=== PATIENT | female | born 1960 | race Caucasian/White ===

== ENCOUNTER 2019-03-10 09:44 | Emergency (ER) | payer OTHER ==
[~2019-03-10] VITALS: Ht 160 cm; Wt 63.5 kg
[~2019-03-10 09:44] MED LIST: ALPR1TAB2 PO; HYDR-3606 PO
--- NOTE | 2019-03-10 09:54 | NUR ---
Patient to ER bed 3 to gown for evaluation. Side rails up. Report given to Faizan PANCHAL.
[2019-03-10 09:55] VITALS: BP_SYST 117
--- NOTE | 2019-03-10 09:55 | NUR ---
Patient is awake, alert, and oriented x4. Patient is complaining of burning chest pain 8/10 since yesterday. Patient denies shortness of breath.
--- NOTE | 2019-03-10 09:58 | NUR ---
HAVEN Ely at bedside examining patient.
[2019-03-10] MEDS ORDERED: ALPRAZolam 0.25 MG TABLET PO ONE (10:00)
--- NOTE | 2019-03-10 10:09 | NUR ---
Patient up to bathroom to provide urine sample.
[2019-03-10 10:14] LABS: BASOPHILS # (AUTO) 0.1 K/uL (0.0-0.2); BASOPHILS % (AUTO) 0.9 % (0.0-2.0); EOSINOPHILS # (AUTO) 0.1 K/uL (0.0-0.4); HEMATOCRIT 43.4 % (36-48); HEMOGLOBIN 14.7 g/dL (12.0-16.0); LYMPHOCYTES # (AUTO) 1.9 K/uL (1.0-5.5); LYMPHOCYTES % (AUTO) 21.8 % (20.5-51.5); MEAN CORPUSCULAR HEMOGLOBIN 31 pg (27-31); MEAN CORPUSCULAR HGB CONC 34 % (32-36); MEAN CORPUSCULAR VOLUME 90 fL (79.0-98.0); MONOCYTES # (AUTO) 0.4 K/uL (0.0-1.0); MONOCYTES % (AUTO) 4.5 % (1.7-9.3); NEUTROPHILS # (AUTO) 6.3 K/uL (1.8-7.7); NEUTROPHILS % (AUTO) 71.8 % (40.0-70.0); PLATELET COUNT (AUTO) 263 K/uL (130-430); RED BLOOD CELL COUNT(AUTO) 4.81 MIL/uL (4.2-6.2); RED CELL DISTRIBUTION WIDTH 13.3 % (9.0-15.0); WHITE BLOOD COUNT (AUTO) 8.9 K/uL (4.8-10.8)
[2019-03-10 10:32] LABS: ALANINE AMINOTRANSFERASE 27 U/L (12-78); ALBUMIN 3.3 g/dL (3.4-4.8); ASPARTATE AMINOTRANSFERASE 18 U/L (10-37); CALCIUM 9.1 mg/dL (8.4-11.0); CHLORIDE 105 mmol/L (98-107); CREATININE 1.01 mg/dL (0.55-1.30); GLUCOSE 131 mg/dL (70-99); POTASSIUM 4.1 mmol/L (3.5-5.1); SODIUM SERUM 141 mmol/L (136-145); TOTAL BILIRUBIN 0.6 mg/dL (0.0-1.0); UREA NITROGEN, BLOOD 7 mg/dL (8-21)
[2019-03-10 10:38] LABS: ANION GAP 9 (5-15)
[2019-03-10 10:39] LABS: GFR AFRICAN AMERICAN 72 mL/min (>90)
[2019-03-10 10:41] LABS: BILIRUBIN,URINE NEGATIVE (NEGATIVE); BLOOD, URINE NEGATIVE (NEGATIVE); CLARITY/URINE CLEAR (CLEAR); COLOR,URINE YELLOW (YELLOW); GLUCOSE,URINE NEGATIVE (NEGATIVE); KETONES,URINE NEGATIVE (NEGATIVE); LEUKOCYTE ESTERASE ,URINE NEGATIVE (NEGATIVE); NITRITE, URINE NEGATIVE (NEGATIVE); PH,URINE 6.5 (5.0-8.0); PROTEIN URINE NEGATIVE (NEGATIVE); UROBILINOGEN,URINE 0.2 (0.2-1.0)
[2019-03-10] MEDS ORDERED: IBUPROFEN 600 MG TABLET PO ONE (11:00)
--- NOTE | 2019-03-10 11:07 | NUR ---
Patient refused ibuprofen, Dr. Ely made aware.
--- NOTE | 2019-03-10 11:11 | NUR ---
Patient given written and verbal discharge instructions and verbalizes understanding. ER MD discussed with patient the results and treatment provided. Patient in stable condition. ID arm band removed. Patient educated on pain management and to follow up with PMD. Pain Scale 5/10, Dr. Ely is aware. Opportunity for questions provided and answered. Medication side effect fact sheet provided.
[2019-03-10 11:12] VITALS: BP_SYST 104
== END 2019-03-10 11:11 | disposition home or self-care (01) ==
LOC: SED 09:44
DX: R07.89 Other chest pain (principal); F41.9 Anxiety disorder, unspecified; F17.210 Nicotine dependence, cigarettes, uncomplicated; J45.909 Unspecified asthma, uncomplicated; Z88.0 Allergy status to penicillin; Z88.6 Allergy status to analgesic agent; Z88.8 Allergy status to other drugs, medicaments and biological substances; Z79.899 Other long term (current) drug therapy; Z71.6 Tobacco abuse counseling
CPT/HCPCS: 36415; 71045; 80053; 81003; 83880; 84484; 85025; 85379; 93005; 99284

== ENCOUNTER 2019-10-29 19:26 | Emergency (ER) | payer OTHER ==
[~2019-10-29] VITALS: Ht 160 cm; Wt 65.8 kg
[~2019-10-29 19:26] MED LIST changes: -HYDR-3606 PO; +HYDR-3607 PO
[2019-10-29 19:45] VITALS: BP_SYST 122
--- NOTE | 2019-10-29 19:55 | NUR ---
Patient triaged and placed in waiting room. VSS and patient appears in no acute distress at this time. Accompanied by self, awaiting available bed, and MD notified of need for MSE.
--- NOTE | 2019-10-29 21:38 | NUR ---
Patient to ER bed 03 to gown for evaluation. Side rails up.
--- NOTE | 2019-10-29 21:45 | NUR ---
Note undone in EDM - 10/29/19 at 2151 by [email or web address] Patient AAO x 4 ambulates to ER bed 03 with complaints of 6/10 chest pressure x 2 days. Reports cough, congestion with green phlegm, and diarrhea since last Saturday. Denies cardiorespiratory medical history. Patient has history of anxiety, and she is prescribed Xanax. Even chest rise and fall with respirations. Will continue to monitor.
--- NOTE | 2019-10-29 21:50 | NUR ---
ER Dr. Becerra at bedside examining patient.
[2019-10-29] MEDS ORDERED: NACL 0.9% 1,000 ML IV ONE (21:52)
[2019-10-29] MEDS ORDERED: LevALBUTEROL HCL 1.25 MG/0.5 ML *CONC.* VIAL.NEB (XOPENEX CONC.) INH ONE (22:00)
[2019-10-29 22:20] LABS: BASOPHILS % (AUTO) 0.4 % (0.0-2.0); EOSINOPHILS # (AUTO) 0.1 K/uL (0.0-0.4); EOSINOPHILS % (AUTO) 0.7 % (0.0-4.0); HEMATOCRIT 38.3 % (36-48); HEMOGLOBIN 13.1 g/dL (12.0-16.0); LYMPHOCYTES # (AUTO) 3.1 K/uL (1.0-5.5); LYMPHOCYTES % (AUTO) 29.6 % (20.5-51.5); MEAN CORPUSCULAR HEMOGLOBIN 31 pg (27-31); MEAN CORPUSCULAR HGB CONC 34 % (32-36); MEAN CORPUSCULAR VOLUME 90 fL (79.0-98.0); MONOCYTES # (AUTO) 0.6 K/uL (0.0-1.0); MONOCYTES % (AUTO) 5.6 % (1.7-9.3); NEUTROPHILS # (AUTO) 6.6 K/uL (1.8-7.7); NEUTROPHILS % (AUTO) 63.7 % (40.0-70.0); PLATELET COUNT (AUTO) 307 K/uL (130-430); RED BLOOD CELL COUNT(AUTO) 4.25 MIL/uL (4.2-6.2); RED CELL DISTRIBUTION WIDTH 12.9 % (9.0-15.0); WHITE BLOOD COUNT (AUTO) 10.4 K/uL (4.8-10.8)
[2019-10-29 22:32] LABS: CREATININE 0.78 mg/dL (0.55-1.30); POTASSIUM 3.4 mmol/L (3.5-5.1)
[2019-10-29 22:37] LABS: ALBUMIN 3.3 g/dL (3.4-4.8); TOTAL BILIRUBIN 0.2 mg/dL (0.0-1.0)
--- NOTE | 2019-10-29 22:41 | NUR ---
RT at bedside for blood draw.
[2019-10-30] MEDS ORDERED: PROMETHAZINE-DM 6.25 MG-15 MG/5 ML UDC PO ONE (00:45)
[2019-10-30] MEDS ORDERED: CEPHALEXIN 500 MG CAPSULE PO ONE (00:45)
[2019-10-30 01:10] VITALS: BP_SYST 115
[2019-10-30] MEDS ORDERED: PROMETHAZINE-DM 6.25 MG-15 MG/5 ML UDC ONE (01:10)
--- NOTE | 2019-10-30 01:10 | NUR ---
Patient given written and verbal discharge instructions and verbalizes understanding. ER MD Dr. Becerra discussed with patient the results and treatment provided. Patient in stable condition. ID arm band removed. IV catheter removed intact and dressing applied, no active bleeding. Rx of Keflex and Promethazine given. Patient educated on medication use and to follow up with PMD. Pain Scale 3/10. Opportunity for questions provided and answered. Medication side effect fact sheet provided.
== END 2019-10-30 01:10 | disposition home or self-care (01) ==
LOC: SED 19:26
DX: J45.909 Unspecified asthma, uncomplicated (principal); F41.9 Anxiety disorder, unspecified; F17.200 Nicotine dependence, unspecified, uncomplicated; R50.9 Fever, unspecified; R53.1 Weakness; Z88.0 Allergy status to penicillin; Z88.6 Allergy status to analgesic agent
CPT/HCPCS: 36415; 71045; 80053; 83605; 83690; 84484; 85025; 86710; 87040; 94640; 96360; 99284; J7030; J7612

== ENCOUNTER 2021-06-09 13:55 | Emergency (ER) | payer OTHER, SELFPAY ==
--- NOTE | 2021-06-09 14:30 | NUR ---
UNABLE TO FIND THE PATIENT
== END 2021-06-09 14:30 | disposition left against medical advice (07) ==
LOC: SED 13:55
DX: J11.1 Influenza due to unidentified influenza virus with other respiratory manifestations (principal); Z53.21 Procedure and treatment not carried out due to patient leaving prior to being seen by health care provider

== ENCOUNTER 2023-08-14 16:09 | Emergency (ER) | payer OTHER ==
[~2023-08-14] VITALS: Ht 160 cm; Wt 66.7 kg
[2023-08-14 16:15] VITALS: BP_SYST 150; PULSE 91; RESP 19; TEMP 97.8; O2SAT 98
== END 2023-08-14 16:44 | disposition left against medical advice (07) ==
LOC: SED 16:09
DX: Z00.00 Encounter for general adult medical examination without abnormal findings (principal); F43.21 Adjustment disorder with depressed mood; R45.7 State of emotional shock and stress, unspecified; J45.909 Unspecified asthma, uncomplicated; Z88.0 Allergy status to penicillin; Z88.5 Allergy status to narcotic agent; Z88.6 Allergy status to analgesic agent; Z79.899 Other long term (current) drug therapy
CPT/HCPCS: 99281

== ENCOUNTER 2023-10-10 13:35 | Emergency (ER) | payer OTHER ==
[~2023-10-10] VITALS: Ht 162.6 cm; Wt 59.0 kg
[2023-10-10 13:35] VITALS: BP_SYST 181; PULSE 89; RESP 18; TEMP 97; O2SAT 100
[2023-10-10] MEDS ORDERED: traMADol HCL HCL 50 MG TABLET (ULTRAM) PO ONE (14:45)
[2023-10-10] MEDS ORDERED: HYDROcodone/ACETAMIN 10-325 MG TAB PO ONE (15:15)
[2023-10-10] MEDS ORDERED: HYDR-3917 PO (15:57)
== END 2023-10-10 16:28 | disposition home or self-care (01) ==
LOC: SED 13:35
DX: S92.324A Nondisplaced fracture of second metatarsal bone, right foot, initial encounter for closed fracture (principal); J45.909 Unspecified asthma, uncomplicated; Z88.0 Allergy status to penicillin; Z88.5 Allergy status to narcotic agent; Z88.6 Allergy status to analgesic agent; Z79.899 Other long term (current) drug therapy; W22.8XXA Striking against or struck by other objects, initial encounter; Y93.89 Activity, other specified; Y92.89 Other specified places as the place of occurrence of the external cause; Y99.8 Other external cause status
CPT/HCPCS: 99283